=== PATIENT | female | born 1990 | race Caucasian/White ===

== ENCOUNTER 2018-10-29 10:45 | Emergency (ER) | payer BC ==
[2018-10-29] MEDS ORDERED: LIDOCAINE 1% MPF 5 ML VIAL ONE (11:32)
[2018-10-29] MEDS ORDERED: LIDOCAINE 1% MPF 30 ML VIAL ONE (11:32)
--- NOTE | 2018-10-29 12:30 | ER ---
Nurse's Notes [facility] Name: Odalis Rodriguez Age: 28 yrs Sex: Female : 1990 Arrival Date: 10/29/2018 Time: 10:48 Bed 18 Private MD: Diagnosis: Cutaneous abscess of abdominal wall Presentation: 10/29 10:53 Presenting complaint: Sent from [facility] for abdominal wall abscess x 1 hb week. Denies fever. Transition of care: patient was not received from another setting of care. Onset of symptoms was October 21, 2018. Risk Assessment: Do you want to hurt yourself or someone else? Patient reports no desire to harm self or others. Initial Sepsis Screen: Does the patient meet any 2 criteria? No. Patient's initial sepsis screen is negative. Does the patient have a suspected source of infection? No. Patient's initial sepsis screen is negative. Care prior to arrival: None. 10:53 Method Of Arrival: Ambulatory hb 10:53 Acuity: CLAY 3 hb Triage Assessment: 10:55 General: Appears in no apparent distress. comfortable, Behavior is cooperative, bp appropriate for age, anxious. Pain: Complains of pain in abdomen. EENT: No deficits noted. Neuro: No deficits noted. Cardiovascular: No deficits noted. Respiratory: No deficits noted. GI: No signs and/or symptoms were reported involving the gastrointestinal system. : No signs and/or symptoms were reported regarding the genitourinary system. Derm: Abscess located on abdomen is quarter sized. 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 - Social history:: Smoking status: Patient/guardian denies using tobacco. - Ebola Screening: : No symptoms or risks identified at this time. Screenin:55 Abuse screen: Denies threats or abuse. Denies injuries from another. Nutritional bp screening: No deficits noted. Tuberculosis screening: No symptoms or risk factors identified. Fall Risk None identified. Assessment: 10:55 General: SEE TRIAGE NOTE. bp 12:26 Reassessment: ALL CURRENT ORDERS COMPLETED. DISPO PENDING. bp 12:39 Reassessment: PT D/C HOME AMBULATORY WITH FAMILY, DX WITH CUTANEOUS ABSCESS. bp Vital Signs: 10:54 BP 155 / 86; Pulse 105; Resp 16; Temp 97.8; Pulse Ox 100% on R/A; Weight 120.66 kg; hb Height 5 ft. 7 in. (170.18 cm); Pain 3/10; 12:34 BP 135 / 82; Pulse 80; Resp 16; Temp 98; Pulse Ox 100% ; bp 10:54 Body Mass Index 41.66 (120.66 kg, 170.18 cm) hb ED Course: 10:48 Patient arrived in ED. as 10:54 Triage completed. hb 10:54 Arm band placed on. hb 10:55 Patient has correct armband on for positive identification. Bed in low position. Call bp light in reach. Side rails up X2. Adult w/ patient. 10:56 Devaughn Gallego PA is PHCP. [facility] 10:56 Kade Killian MD is Attending Physician. [facility] 11:00 Hernesto Harvey, RN is Primary Nurse. bp 12:00 Assist provider with I \T\ D: of an abscess on ABDOMINAL Set up I\T\D tray. Performed by bp Devaughn PENNINGTON Wound packed. iodoform gauze, Dressing with tape Patient tolerated well. 12:29 Collin Pan MD is Referral Physician. jmm 12:39 Patient did not have IV access during this emergency room visit. bp Administered Medications: 11:34 Drug: Lidocaine (1 %) 20 ml {Note: AT B/S FOR PROVIDER.} Volume: 20 ml; Route: bp Infiltration; Outcome: 12:29 Discharge ordered by . jmm 12:39 Discharged to home ambulatory, with family. bp 12:39 Condition: stable 12:39 Discharge instructions given to patient, Instructed on discharge instructions, follow up and referral plans. medication usage, wound care, Demonstrated understanding of instructions, follow-up care, medications, wound care, Prescriptions given X 1. 12:40 Patient left the ED. bp Signatures: Devaughn Gallego PA PA jmm Martinez, Amelia as Baxter, Heather, RN RN Hernesto Harvey, APOORVA RN bp
--- NOTE | 2018-10-29 12:30 | EDPHYS ---
Physician Documentation [facility] Name: Odalis Rodriguez Age: 28 yrs Sex: Female : 1990 Arrival Date: 10/29/2018 Time: 10:48 Bed 18 Private MD: ED Physician Kade Killian HPI: 10/29 11:10 This 28 yrs old Female presents to ER via Ambulatory with complaints of jmm Abscess. 11:10 The patient presents with an abscess of the abdomen. Onset: The symptoms/episode jmm began/occurred gradually, 8 day(s) ago. Possible cause(s): unknown. Associated signs and symptoms: Pertinent positives: drainage, erythema, Pertinent negatives: fever. Modifying factors: the symptoms are alleviated by nothing. This is a 28 year old female with no chronic medical conditions that presents to the ED with complaints of swelling to her lower abdomen for the past 8 days. Denies fever. Sent from urgent care. . 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 - Social history:: Smoking status: Patient/guardian denies using tobacco. - Ebola Screening: : No symptoms or risks identified at this time. ROS: 10:55 Constitutional: Negative for fever, chills, and weight loss, Cardiovascular: Negative jmm for chest pain, palpitations, and edema, Respiratory: Negative for shortness of breath, cough, wheezing, and pleuritic chest pain, Abdomen/GI: Negative for abdominal pain, nausea, vomiting, diarrhea, and constipation. 10:55 Skin: Positive for erythema, swelling. 10:55 All other systems are negative. Exam: 10:55 Constitutional: This is a well developed, well nourished patient who is awake, alert, jmm and in no acute distress. Head/Face: atraumatic. Eyes: EOMI, no conjunctival erythema appreciated ENT: Moist Mucus Membranes Neck: Trachea midline, Supple Chest/axilla: Normal chest wall appearance and motion. Cardiovascular: Regular rate and rhythm. No edema appreciated Respiratory: Normal respirations, no respiratory distress appreciated 10:55 Abdomen/GI: draining abscess noted to the lower abdomen. 10:55 Skin: abscess, that is moderate sized, of the abdomen, with drainage, with fluctuance, with induration. 10:55 Neuro: Orientation: is normal, Mentation: is normal, Memory: is normal. 10:55 Psych: Behavior/mood is pleasant, cooperative. Vital Signs: 10:54 BP 155 / 86; Pulse 105; Resp 16; Temp 97.8; Pulse Ox 100% on R/A; Weight 120.66 kg; hb Height 5 ft. 7 in. (170.18 cm); Pain 3/10; 12:34 BP 135 / 82; Pulse 80; Resp 16; Temp 98; Pulse Ox 100% ; bp 10:54 Body Mass Index 41.66 (120.66 kg, 170.18 cm) hb Procedures: 12:27 I \T\ D: Incision and drainage was performed for an abscess of the abdomen Prepped with [facility] Betadine, Anesthetized with 5 ml's 1% Lidocaine. Incised with #11 blade. Drained moderate amount purulent fluid. Packed with sterile gauze, Dressing: sterile 4x4 gauze, non-Adherent dressing, the patient tolerated the procedure well. MDM: 11:10 Patient medically screened. [facility] 12:28 Data reviewed: vital signs, nurses notes. Counseling: I had a detailed discussion with chin the patient and/or guardian regarding: the historical points, exam findings, and any diagnostic results supporting the discharge/admit diagnosis, the need for outpatient follow up, to return to the emergency department if symptoms worsen or persist or if there are any questions or concerns that arise at home. 10/29 11:16 Order name: Incision \T\ Drainage Setup; Complete Time: 11:34 [facility] 10/29 12:12 Order name: Wound Care; Complete Time: 12:19 [facility] Administered Medications: 11:34 Drug: Lidocaine (1 %) 20 ml {Note: AT B/S FOR PROVIDER.} Volume: 20 ml; Route: bp Infiltration; Disposition: 10/30 07:26 Co-signature as Attending Physician, Kade Killian MD I agree with the assessment and kdr plan of care. Disposition: 10/29/18 12:29 Discharged to Home. Impression: Cutaneous abscess of abdominal wall. - Condition is Stable. - Discharge Instructions: Skin Abscess, Incision and Drainage, Care After. - Prescriptions for Bactrim DS 800- 160 mg Oral Tablet - take 1 tablet by ORAL route every 12 hours for 10 days; 20 tablet. - Medication Reconciliation Form, Thank You Letter, Antibiotic Education, Prescription Opioid Use form. - Follow up: Collin Pan MD; When: 2 - 3 days; Reason: Recheck today's complaints, Continuance of care, Re-evaluation by your physician. Signatures: Kade Killian MD MD [facility] Devaughn Gallego PA PA [facility] Radha Marcelino, RN RN Hernesto Harvey RN RN bp Corrections: (The following items were deleted from the chart) 10/29 12:40 12:29 10/29/2018 12:29 Discharged to Home. Impression: Cutaneous abscess of abdominal bp wall. Condition is Stable. Forms are Medication Reconciliation Form, Thank You Letter, Antibiotic Education, Prescription Opioid Use. Follow up: Collin Pan; When: 2 - 3 days; Reason: Recheck today's complaints, Continuance of care, Re-evaluation by your physician. [facility] 13:56 11:10 This is a 28 year old female with no chronic medical conditions that presents to [facility] the ED with complaints of . [facility]
[2018-10-29 12:45] VITALS: O2SAT 100
[2018-10-29 12:46] VITALS: BP 135/82; TEMP 98
== END 2018-10-29 12:40 | disposition home or self-care (01) ==
LOC: ER 10:45
PROC: 0J980ZZ Drainage of Abdomen Subcutaneous Tissue and Fascia, Open Approach (ICD-10-PCS; principal; 2018-10-29)
DX: L02.211 Cutaneous abscess of abdominal wall (principal)
CPT/HCPCS: 99283

== ENCOUNTER 2018-11-13 10:03 | Emergency (ER) | payer BC ==
[2018-11-13] MEDS ORDERED: dexAMETHasone 10 MG/ML VIAL ONE (12:16)
[2018-11-13] MEDS ORDERED: FAMOTIDINE 20 MG TAB ONE (12:16)
[2018-11-13] MEDS ORDERED: DIPHENHYDRAMINE 25 MG TAB/CAP ONE (12:16)
--- NOTE | 2018-11-13 16:29 | ER ---
Nurse's Notes [facility] Name: Odalis Rodriguez Age: 28 yrs Sex: Female : 1990 Arrival Date: 11/13/2018 Time: 10:05 Bed 23 Private MD: Diagnosis: Allergy, unspecified;Angioneurotic edema Presentation: 11/13 10:15 Presenting complaint: Patient states: She noticed Saturday evening that her left eye was aj1 swollen after mowing so she took some Benadryl, when she woke up both her eyes appeared swollen, so she kept taking Benadryl, but when she woke up the next day her whole face was swollen. Denies shortness of breath. Breath sounds CTA. Transition of care: patient was not received from another setting of care. Onset: The symptoms/episode began/occurred 3 day(s) ago. Anaphylaxis evaluation, no signs or symptoms of anaphylaxis were noted. Onset of symptoms was October 2018. Risk Assessment: Do you want to hurt yourself or someone else? Patient reports no desire to harm self or others. Initial Sepsis Screen: Does the patient meet any 2 criteria? No. Patient's initial sepsis screen is negative. Does the patient have a suspected source of infection? No. Patient's initial sepsis screen is negative. Care prior to arrival: None. 10:15 Method Of Arrival: Ambulatory aj1 10:15 Acuity: CLAY 3 aj1 Triage Assessment: 10:18 General: Appears in no apparent distress. comfortable, Behavior is calm, cooperative, aj1 appropriate for age. Pain: Denies pain. Neuro: Level of Consciousness is awake, alert, obeys commands. Cardiovascular: Heart tones S1 S2 present Patient's skin is warm and dry. Respiratory: Airway is patent Respiratory effort is even, unlabored, Respiratory pattern is regular, symmetrical, Breath sounds are clear bilaterally. Denies cough, shortness of breath. 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 - Social history:: Smoking status: Patient/guardian denies using tobacco. - Ebola Screening: : Patient denies travel to an Ebola-affected area in the 21 days before illness onset. Screenin:34 Abuse screen: Denies threats or abuse. Denies injuries from another. Nutritional mg2 screening: No deficits noted. Tuberculosis screening: No symptoms or risk factors identified. Fall Risk None identified. Assessment: 12:32 General: Appears in no apparent distress. comfortable, Behavior is calm, cooperative. mg2 Pain: Denies pain. Neuro: Level of Consciousness is awake, alert, obeys commands, Oriented to person, place, time, situation. Cardiovascular: Capillary refill < 3 seconds Patient's skin is warm and dry. Respiratory: Airway is patent Respiratory effort is even, unlabored, Respiratory pattern is regular, symmetrical. GI: No signs and/or symptoms were reported involving the gastrointestinal system. : No signs and/or symptoms were reported regarding the genitourinary system. EENT: No signs and/or symptoms were reported regarding the EENT system. Derm: Skin is intact, is healthy with good turgor, Skin is pink, warm \T\ dry. normal, swelling in both eyes. Musculoskeletal: Circulation, motion, and sensation intact. Capillary refill < 3 seconds. 12:53 Reassessment: eye swelling subsided. Patient states feeling better. Patient states mg2 symptoms have improved. Vital Signs: 10:18 BP 132 / 81; Pulse 85; Resp 18; Temp 98.3; Pulse Ox 98% on R/A; Weight 120.66 kg (R); aj1 Height 5 ft. 7 in. (170.18 cm) (R); Pain 0/10; 12:54 BP 120 / 80; Pulse 84; Resp 18; Temp 98; Pulse Ox 100% on R/A; mg2 12:55 BP 120 / 84; Pulse 85; Resp 18; Temp 98; Pulse Ox 100% on R/A; mg2 10:18 Body Mass Index 41.66 (120.66 kg, 170.18 cm) aj1 ED Course: 10:05 Patient arrived in ED. as 10:17 Triage completed. aj1 10:18 Arm band placed on Patient placed in waiting room, Patient notified of wait time. aj1 11:58 Rain Mayo RN is Primary Nurse. mg2 11:58 Jorge Lujan NP is PHCP. pm1 11:58 Kade Killian MD is Attending Physician. pm1 12:36 Patient has correct armband on for positive identification. mg2 12:36 No provider procedures requiring assistance completed. Patient did not have IV access mg2 during this emergency room visit. Administered Medications: 12:22 Drug: Decadron 10 mg Route: IM; Site: right gluteus; mg2 12:54 Follow up: Response: No adverse reaction; Marked relief of symptoms mg2 12:22 Drug: Benadryl 50 mg Route: PO; mg2 12:54 Follow up: Response: No adverse reaction; Marked relief of symptoms mg2 12:22 Drug: Pepcid 20 mg Route: PO; mg2 12:54 Follow up: BP 120 / 80; Pulse 84 bpm; Resp 18 bpm; Temp 98; Pulse Ox 100% RA mg2 Outcome: 12:45 Discharge ordered by . pm1 12:55 Discharged to home ambulatory, with family. mg2 12:55 Condition: stable 12:55 Discharge instructions given to patient, Instructed on discharge instructions, follow up and referral plans. medication usage, Demonstrated understanding of instructions, follow-up care, medications, Prescriptions given X 3. 12:55 Patient left the ED. mg2 Signatures: Cori Naranjo RN RN aj1 Melina Dixon Patrick, NP STRINGED INSTRUMENT ASSEMBLER pm1 Rian Mayo RN RN mg2
--- NOTE | 2018-11-13 16:30 | EDPHYS ---
Physician Documentation [facility] Name: Odalis Rodriguez Age: 28 yrs Sex: Female : 1990 Arrival Date: 11/13/2018 Time: 10:05 Bed 23 Private MD: ED Physician Kade Killian HPI: 11/13 12:45 This 28 yrs old Female presents to ER via Ambulatory with complaints of pm1 Allergic Reaction, Facial Swelling. 12:45 The patient presents with Facial swelling. Onset: The symptoms/episode began/occurred pm1 yesterday. Associated signs and symptoms: Pertinent negatives: fever, headache, nausea, shortness of breath, vomiting. Possible causes: The patient has no known obvious cause for the symptoms. At home the patient or guardian has treated the symptoms with nothing. Severity of symptoms: in the emergency department the symptoms are worse. The patient has not experienced similar symptoms in the past. The patient has not recently seen a physician. Facial swelling onset after mowing the lawn. 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 - Social history:: Smoking status: Patient/guardian denies using tobacco. - Ebola Screening: : Patient denies travel to an Ebola-affected area in the 21 days before illness onset. ROS: 12:45 Constitutional: Negative for fever, chills, and weight loss, Eyes: Negative for injury, pm1 pain, redness, and discharge, ENT: Negative for injury, pain, and discharge, Neck: Negative for injury, pain, and swelling, Cardiovascular: Negative for chest pain, palpitations, and edema, Respiratory: Negative for shortness of breath, cough, wheezing, and pleuritic chest pain, Abdomen/GI: Negative for abdominal pain, nausea, vomiting, diarrhea, and constipation, Back: Negative for injury and pain, MS/Extremity: Negative for injury and deformity. 12:45 Neuro: Negative for headache, weakness, numbness, tingling, and seizure. 12:45 Skin: Positive for swelling, of the face. Exam: 12:45 Constitutional: This is a well developed, well nourished patient who is awake, alert, pm1 and in no acute distress. Head/Face: Normocephalic, atraumatic. Eyes: Pupils equal round and reactive to light, extra-ocular motions intact. Lids and lashes normal. Conjunctiva and sclera are non-icteric and not injected. Cornea within normal limits. Periorbital areas with no swelling, redness, or edema. ENT: Nares patent. No nasal discharge, no septal abnormalities noted. Tympanic membranes are normal and external auditory canals are clear. Oropharynx with no redness, swelling, or masses, exudates, or evidence of obstruction, uvula midline. Mucous membranes moist. Neck: Trachea midline, no thyromegaly or masses palpated, and no cervical lymphadenopathy. Supple, full range of motion without nuchal rigidity, or vertebral point tenderness. No Meningismus. Chest/axilla: Normal chest wall appearance and motion. Nontender with no deformity. No lesions are appreciated. Cardiovascular: Regular rate and rhythm with a normal S1 and S2. No gallops, murmurs, or rubs. Normal PMI, no JVD. No pulse deficits. Respiratory: Lungs have equal breath sounds bilaterally, clear to auscultation and percussion. No rales, rhonchi or wheezes noted. No increased work of breathing, no retractions or nasal flaring. Abdomen/GI: Soft, non-tender, with normal bowel sounds. No distension or tympany. No guarding or rebound. No evidence of tenderness throughout. Back: No spinal tenderness. No costovertebral tenderness. Full range of motion. 12:45 Skin: Appearance: normal except for affected area, swelling, that are mild, bilateral eyelids and cheeks. Vital Signs: 10:18 BP 132 / 81; Pulse 85; Resp 18; Temp 98.3; Pulse Ox 98% on R/A; Weight 120.66 kg (R); aj1 Height 5 ft. 7 in. (170.18 cm) (R); Pain 0/10; 12:54 BP 120 / 80; Pulse 84; Resp 18; Temp 98; Pulse Ox 100% on R/A; mg2 12:55 BP 120 / 84; Pulse 85; Resp 18; Temp 98; Pulse Ox 100% on R/A; mg2 10:18 Body Mass Index 41.66 (120.66 kg, 170.18 cm) aj1 MDM: 12:05 Patient medically screened. pm1 12:40 Data reviewed: vital signs. Data interpreted: Pulse oximetry: on room air is 98 %. pm1 Interpretation: normal. Counseling: I had a detailed discussion with the patient and/or guardian regarding: the historical points, exam findings, and any diagnostic results supporting the discharge/admit diagnosis, the need for outpatient follow up, to return to the emergency department if symptoms worsen or persist or if there are any questions or concerns that arise at home. Administered Medications: 12:22 Drug: Decadron 10 mg Route: IM; Site: right gluteus; mg2 12:54 Follow up: Response: No adverse reaction; Marked relief of symptoms mg2 12:22 Drug: Benadryl 50 mg Route: PO; mg2 12:54 Follow up: Response: No adverse reaction; Marked relief of symptoms mg2 12:22 Drug: Pepcid 20 mg Route: PO; mg2 12:54 Follow up: BP 120 / 80; Pulse 84 bpm; Resp 18 bpm; Temp 98; Pulse Ox 100% RA mg2 Disposition: 14:53 Co-signature as Attending Physician, Kade Killian MD I agree with the assessment and kdr plan of care. Disposition: 11/13/18 12:45 Discharged to Home. Impression: Angioneurotic edema, Allergy, unspecified. - Condition is Stable. - Discharge Instructions: Angioedema. - Prescriptions for Pepcid 20 mg Oral Tablet - take 1 tablet by ORAL route every 12 hours for 10 days; 20 tablet. Prednisone 20 mg Oral Tablet - take 3 tablet by ORAL route once daily for 5 days; 15 tablet. Benadryl 25 mg Oral Capsule - take 1 capsule by ORAL route every 6 hours As needed; 30 tablet. - Medication Reconciliation Form, Thank You Letter, Antibiotic Education, Prescription Opioid Use form. - Follow up: Emergency Department; When: As needed; Reason: Worsening of condition. Follow up: Private Physician; When: 2 - 3 days; Reason: Recheck today's complaints, Continuance of care, Re-evaluation by your physician. - Problem is new. - Symptoms have improved. Signatures: Cori Naranjo RN RN aj1 Kade Killian MD MD kdr Marinas, Patrick, NP BROKERAGE MANAGER pm1 Rian Mayo, RN RN mg2 Corrections: (The following items were deleted from the chart) 12:48 12:45 11/13/2018 12:45 Discharged to Home. Impression: Localized swelling, mass and pm1 lump, head; Allergy, unspecified. Condition is Stable. Forms are Medication Reconciliation Form, Thank You Letter, Antibiotic Education, Prescription Opioid Use. Follow up: Emergency Department; When: As needed; Reason: Worsening of condition. Follow up: Private Physician; When: 2 - 3 days; Reason: Recheck today's complaints, Continuance of care, Re-evaluation by your physician. Problem is new. Symptoms have improved. pm1 12:55 12:48 11/13/2018 12:45 Discharged to Home. Impression: Angioneurotic edema; Allergy, mg2 unspecified. Condition is Stable. Discharge Instructions: Angioedema. Prescriptions for Pepcid 20 mg Oral Tablet - take 1 tablet by ORAL route every 12 hours for 10 days; 20 tablet, Prednisone 20 mg Oral Tablet - take 3 tablet by ORAL route once daily for 5 days; 15 tablet, Benadryl 25 mg Oral Capsule - take 1 capsule by ORAL route every 6 hours As needed; 30 tablet. and Forms are Medication Reconciliation Form, Thank You Letter, Antibiotic Education, Prescription Opioid Use. Follow up: Emergency Department; When: As needed; Reason: Worsening of condition. Follow up: Private Physician; When: 2 - 3 days; Reason: Recheck today's complaints, Continuance of care, Re-evaluation by your physician. Problem is new. Symptoms have improved. pm1
[2018-11-13 18:15] VITALS: TEMP 98; O2SAT 100
[2018-11-13 18:17] VITALS: BP 120/84
== END 2018-11-13 12:55 | disposition home or self-care (01) ==
LOC: ER 10:03
DX: T78.3XXA Angioneurotic edema, initial encounter (principal); T78.40XA Allergy, unspecified, initial encounter; X58.XXXA Exposure to other specified factors, initial encounter
CPT/HCPCS: 96372; 99283; J1100

== ENCOUNTER 2020-11-14 09:09 | Emergency (ER) | payer BC ==
[2020-11-14 12:11] LABS: SARS-COV-2 RT PCR NEGATIVE (NEGATIVE)
--- NOTE | 2020-11-14 12:50 | EDPHYS ---
Physician Documentation [facility] Name: Odalis Rodriguez Age: 30 yrs Sex: Female : 1990 Arrival Date: 11/14/2020 Time: 09:13 Bed Waiting Private MD: ED Physician Geovany Tim HPI: 11/14 12:34 This 30 yrs old Female presents to ER via Ambulatory with complaints of r/o kb covid. 12:34 The patient or guardian reports flu symptoms, low-grade fever, myalgias. Onset: The kb symptoms/episode began/occurred this morning. Severity of symptoms: At their worst the symptoms were mild, in the emergency department the symptoms are unchanged. Modifying factors: The symptoms are alleviated by nothing, the symptoms are aggravated by nothing. Associated signs and symptoms: Pertinent positives: fever, rhinorrhea, sore throat. The patient has not experienced similar symptoms in the past. The patient has not recently seen a physician. Pt reports sinus pressure, congestion, fever, chills, sore throat and body aches since this morning. Historical: - Allergies: 09:29 NKDA; hb - Immunization history:: Client reports having NOT received the Covid vaccine. ROS: 12:31 Respiratory: Negative for shortness of breath, cough, wheezing, and pleuritic chest kb pain, Abdomen/GI: Negative for abdominal pain, nausea, vomiting, diarrhea, and constipation. 12:31 Constitutional: Positive for body aches, chills, fatigue, fever, malaise. 12:31 ENT: Positive for rhinorrhea, sinus congestion. 12:31 All other systems are negative. Exam: 12:31 Constitutional: This is a well developed, well nourished patient who is awake, alert, kb and in no acute distress. Head/Face: Normocephalic, atraumatic. ENT: Moist Mucous membranes Cardiovascular: Regular rate and rhythm with a normal S1 and S2. No gallops, murmurs, or rubs. No pulse deficits. Respiratory: Respirations even and unlabored. No increased work of breathing, no retractions or nasal flaring. Abdomen/GI: Soft, non-tender. No distention Skin: Warm, dry with normal turgor. Normal color. MS/ Extremity: Pulses equal, no cyanosis. Neurovascular intact. Full, normal range of motion. Neuro: Awake and alert, GCS 15, oriented to person, place, time, and situation. Moves all extremities. Normal gait. Psych: Awake, alert, with orientation to person, place and time. Behavior, mood, and affect are within normal limits. Vital Signs: 09:27 BP 139 / 83; Pulse 122; Resp 16; Temp 98.6(TE); Pulse Ox 100% on R/A; Weight 122.47 kg; hb Height 5 ft. 7 in. (170.18 cm); Pain 8/10; 12:50 Pulse 107; kb 09:27 Body Mass Index 42.29 (122.47 kg, 170.18 cm) hb MDM: 10:31 Patient medically screened. kb 12:29 Data reviewed: vital signs, nurses notes. Data interpreted: Pulse oximetry: on room air kb is 100 %. Interpretation: normal. Counseling: I had a detailed discussion with the patient and/or guardian regarding: the historical points, exam findings, and any diagnostic results supporting the discharge/admit diagnosis, lab results, the need for outpatient follow up, a family practitioner, to return to the emergency department if symptoms worsen or persist or if there are any questions or concerns that arise at home. 11/14 10:31 Order name: Strep; Complete Time: 11:44 hb 11/14 11:40 Order name: Throat Culture EDMS 11/14 12:12 Order name: COVID-19/FLU A+B; Complete Time: 12:18 EDMS Administered Medications: No medications were administered Disposition: 13:19 Co-signature as Attending Physician, Geovany Tim MD I agree with the assessment and daniel plan of care. Disposition Summary: 11/14/20 12:49 Discharge Ordered Location: Home kb Condition: Stable kb Diagnosis - Acute sinusitis, unspecified kb Followup: kb - With: Emergency Department - When: As needed - Reason: Worsening of condition Followup: kb - With: Private Physician - When: 2 - 3 days - Reason: Recheck today's complaints, Continuance of care, Re-evaluation by your physician Discharge Instructions: - Discharge Summary Sheet kb - Sinusitis, Adult, [id number] kb Forms: - Medication Reconciliation Form kb - Thank You Letter kb - Antibiotic Education kb - Prescription Opioid Use kb - Work release form bd Signatures: Dispatcher [employer] EDGabriela Darby FNP-C FNP-Geovany Farris MD MD cha Baxter, Heather, RN RN hb Corrections: (The following items were deleted from the chart) 11: 10:06 CORONAVIRUS+MR.LAB.BRZ ordered. EDMS EDMS 11: 10:31 Influenza Screen (A \T\ B)+BA.LAB.BRZ ordered. EDMS EDMS
--- NOTE | 2020-11-14 12:50 | ER ---
Nurse's Notes [facility] Name: Odalis Rodriguez Age: 30 yrs Sex: Female : 1990 Arrival Date: 11/14/2020 Time: 09:13 Bed Waiting Private MD: Diagnosis: Acute sinusitis, unspecified Presentation: 11/14 09:27 Chief complaint: Body aches, chills, subjective fever, and sinus pressure upon waking hb today. Coronavirus screen: Client presents with at least one sign or symptom that may indicate coronavirus-19. Standard/surgical mask placed on the client. Provider contacted for isolation considerations. Ebola Screen: No symptoms or risks identified at this time. Risk Assessment: Do you want to hurt yourself or someone else? Patient reports no desire to harm self or others. Onset of symptoms was November 14, 2020. 09:27 Method Of Arrival: Ambulatory hb 09:27 Acuity: CLAY 3 hb Historical: - Allergies: 09:29 NKDA; hb - Immunization history:: Client reports having NOT received the Covid vaccine. Vital Signs: 09:27 BP 139 / 83; Pulse 122; Resp 16; Temp 98.6(TE); Pulse Ox 100% on R/A; Weight 122.47 kg; hb Height 5 ft. 7 in. (170.18 cm); Pain 8/10; 12:50 Pulse 107; kb 09:27 Body Mass Index 42.29 (122.47 kg, 170.18 cm) hb ED Course: 09:13 Patient arrived in ED. as 09:29 Triage completed. hb 10:04 Gab[facility] Medina [facility]-C [facility] kb 10:04 Geovany Tim MD is Attending Physician. kb Administered Medications: No medications were administered Outcome: 12:49 Discharge ordered by . kb 12:54 Patient left the ED. hb Signatures: Gabriela Medina FNP-C FNP-Ckb Martinez, Amelia as Baxter, Heather, APOORVA RN hb
[2020-11-14 12:57] VITALS: BP 139/83; TEMP 98.6; O2SAT 100
== END 2020-11-14 12:54 | disposition home or self-care (01) ==
LOC: ER 09:09
DX: J01.90 Acute sinusitis, unspecified (principal); Z20.822 Contact with and (suspected) exposure to COVID-19
CPT/HCPCS: 87070; 87081; 0240U; 99281